=== PATIENT | female | born 1950 | race Two or more races ===

== ENCOUNTER → 2024-05-11 10:34 | Outpatient (REF) | payer OTHER, SELFPAY | LOC: RAD 10:34 | PROVIDERS: ATTENDING PHYSICIAN Physician Assistant Surgical | DX: M79.661 Pain in right lower leg (principal) | CPT/HCPCS: 93971 ==

== ENCOUNTER → 2024-05-29 10:15 | Outpatient (REF) | payer OTHER, SELFPAY | LOC: RCS 10:15 | PROVIDERS: ATTENDING PHYSICIAN Surgery Plastic and Reconstructive Surgery | DX: Z01.818 Encounter for other preprocedural examination (principal) | CPT/HCPCS: 93005 ==

== ENCOUNTER → 2024-10-26 07:38 | Outpatient (REF) | payer OTHER, SELFPAY | LOC: RAD 07:38 | PROVIDERS: ATTENDING PHYSICIAN Family Medicine | DX: R10.9 Unspecified abdominal pain (principal); Z98.890 Other specified postprocedural states; R11.14 Bilious vomiting | CPT/HCPCS: 74177; Q9967 ==

== ENCOUNTER → 2024-12-20 09:28 | Outpatient (REF) | payer SELFPAY | LOC: HWRAD 09:28 | PROVIDERS: ATTENDING PHYSICIAN Family Medicine | DX: I70.90 Unspecified atherosclerosis (principal) | CPT/HCPCS: 75571 ==